=== PATIENT | male | born 1930 | race Caucasian/White ===

== ENCOUNTER → 2017-05-20 | Outpatient (CLI) | payer MEDICARE, OTHER ==
[~2017-05-20] MED LIST: ALLO100 PO; AMLO5 PO; ASPI325; ATOR40TA PO; BENA20; CHLO25A; CHOL10002 PO; Coumadin5 MG; D3-20002000 UNIT PO; DABI150C PO; ELIQUIS2.5 MG; ENOX40I; ESOM20 PO; HYDCHL12.5 PO; Hydrochloroth12.5 MG PO; Hydrocodone-Ap1 EA23; ICAPS PLUS PO; Icaps Plus1 EACH PO; LOSA50 PO; Lopressor 25 mg25 MG; METO25 PO; Norco 5-325 Ta1 EACH PO; OCUVITE WITH LUTEIN; OMEP20ER; PRED FORTE; PRED1SU; PROBIOTIC1 EAC1 PO; Pred Forte1 ML; SUCR1 PO; TAMS.4ER PO; TIMDOROPSO; TRIHYD5075 PO; Vitamin B Comple1 EA PO; XARELTO20 MG PO; [UNRECOGNIZED DRUG - OTHER]; [UNRECOGNIZED DRUG - OTHER]
[2017-05-20 14:13] LABS: Protein, Urine Quantitative 10.8 mg/dL (0.0-11.9)
[2017-05-20 14:15] LABS: Microalbumin, Urine Quant. 46.7 mg/L (0.000-20.000)
== END | disposition home or self-care (01) ==
LOC: OLS 04:00 → LAB SHORT 04:00 → LAB FUT 05-13 14:00
PROVIDERS: Internal Medicine Nephrology
DX: N18.3 Chronic kidney disease, stage 3 (moderate) (principal); D63.1 Anemia in chronic kidney disease; N25.81 Secondary hyperparathyroidism of renal origin; E55.9 Vitamin D deficiency, unspecified; E78.00 Pure hypercholesterolemia, unspecified; R76.9 Abnormal immunological finding in serum, unspecified; R94.5 Abnormal results of liver function studies; R94.6 Abnormal results of thyroid function studies; D51.8 Other vitamin B12 deficiency anemias; D52.8 Other folate deficiency anemias; D50.9 Iron deficiency anemia, unspecified
CPT/HCPCS: 81050; 82043; 84156; 84166; 86335

== ENCOUNTER 2018-06-19 11:01 | Emergency (ER) | payer MEDICARE | END 2018-06-19 11:12 | disposition left against medical advice (07) | LOC: ER 11:01 | DX: Z53.21 Procedure and treatment not carried out due to patient leaving prior to being seen by health care provider (principal) ==

== ENCOUNTER 2018-09-16 03:54 | Emergency (ER) | payer MEDICARE ==
[~2018-09-16] VITALS: Ht 182.9 cm; Wt 81.7 kg
== END 2018-09-16 17:43 | disposition home or self-care (01) ==
LOC: ER 03:54
DX: S09.90XA Unspecified injury of head, initial encounter (principal); S61.012A Laceration without foreign body of left thumb without damage to nail, initial encounter; W01.198A Fall on same level from slipping, tripping and stumbling with subsequent striking against other object, initial encounter; Z91.030 Bee allergy status; Z79.899 Other long term (current) drug therapy; E11.22 Type 2 diabetes mellitus with diabetic chronic kidney disease; I12.9 Hypertensive chronic kidney disease with stage 1 through stage 4 chronic kidney disease, or unspecified chronic kidney disease; N18.9 Chronic kidney disease, unspecified; Z87.891 Personal history of nicotine dependence
CPT/HCPCS: 70450; 72100; 72125; 99284-25

== ENCOUNTER 2019-03-28 19:00 | Inpatient (IN) | payer OTHER, MEDICARE ==
[~2019-03-28] VITALS: Ht 182.9 cm; Wt 86.0 kg
[2019-03-28 19:10] LABS: Calcium, Ionized (POC) 1.13 mmol/L (1.10-1.46); Chloride (POC) 102 mmol/L (98-108); Creatinine (POC) 1.9 mg/dL (0.8-1.3); Glucose (ISTAT POC) 131 mg/dL (70-99); Hemoglobin (POC) 12.9 g/dL (13.5-17.5); Potassium (POC) 4.7 mmol/L (3.5-5.5); Sodium (POC) 133 mmol/L (135-148); Total CO2 (POC) 22 mmol/L (21-32)
[2019-03-28 19:20] LABS: BASOPHILS ABSOLUTE AUTO 0.04 K/mm3 (0.00-0.23); BASOPHILS PERCENT AUTO 1 % (0-2); EOSINOPHILS ABSOLUTE AUTO 0.29 K/mm3 (0.00-0.68); EOSINOPHILS PERCENT AUTO 4 % (0-6); Hematocrit 38.1 % (37.0-53.0); Hemoglobin 12.3 g/dL (13.5-17.5); IMMATURE GRAN ABSOLUTE AUTO 0.03 K/mm3 (0.00-0.10); IMMATURE GRAN PERCENT AUTO 0 % (0-1); LYMPHOCYTES ABSOLUTE AUTO 1.29 K/mm3 (0.84-5.20); LYMPHOCYTES PERCENT AUTO 16 % (21-46); MONOCYTES ABSOLUTE AUTO 0.92 K/mm3 (0.16-1.47); MONOCYTES PERCENT AUTO 12 % (4-13); Mean Corpuscular HGB 32.4 pg (26.0-34.0); Mean Corpuscular HGB Conc 32.3 g/dL (31.5-36.5); Mean Corpuscular Volume 100 fL (80-100); Mean Platelet Volume 10.8 fL (9.1-12.4); NEUTROPHILS PERCENT AUTO 68 % (41-73); Platelet Count 155 K/mm3 (150-400); RDW Coefficient Variation 14.5 % (11.7-14.2); RDW Standard Deviation 53.7 fL (35.1-46.3); White Blood Cell Count 7.97 K/mm3 (4.00-11.30)
[2019-03-28] MEDS ORDERED: SINEMET 25-1001 EACH PO ×2 (19:25→22:01)
[2019-03-28] MEDS ORDERED: HYDR10 PO (19:26)
[2019-03-28] MEDS ORDERED: PROP10 PO (19:26)
[2019-03-28] MEDS ORDERED: Zantac150 MG PO (19:26)
[2019-03-28 19:36] LABS: Albumin, Blood 3.4 g/dL (3.4-5.0); Bilirubin, Total 0.4 mg/dL (0.1-1.0); Bun/Creatinine Ratio 25.7 (12.0-20.0); Calcium, Blood 8.8 mg/dL (8.5-10.1); Creatinine, Blood 1.83 mg/dL (0.60-1.20); Globulin, Blood 3.4 g/dL (2.2-4.0); Potassium, Blood 4.6 mmol/L (3.5-5.5); Total Protein, Blood 6.8 g/dL (6.4-8.2)
[2019-03-28 19:40] LABS: Troponin I 19.9 ng/mL (0.000-0.040)
[2019-03-28] MEDS ORDERED: Aspir 8181 MG PO (21:59)
[2019-03-28] MEDS ORDERED: SENN187 PO (22:08)
[2019-03-28] MEDS ORDERED: MEMA10 PO (22:10)
[2019-03-28] MEDS ORDERED: MELA3 PO (22:13)
[2019-03-28 22:25] LABS: International Normalized Ratio 1.03; Prothrombin Time Results 10.9 Sec (9.7-11.5)
--- NOTE | 2019-03-28 23:00 | NUR ---
Admission/[facility] of Care: Arrived to unit at 2130hr via stretcher, accompanied by ED nurse. A/o x4, VSS, heart rhythms shows A-fib- 60's-70's. Denies chest pain/discomfort/pressure, denies dyspnea/SOB. Peripheral IV's x2 patent and intact. Using urinal in bed to void without difficulty. Given heparin bolus of 6,300 units IV, followed by heparin gtt at 13u/kg/hr doses at 84kg, confirmed with EMAR and 2nd RN. Troponin of [address] Gaviria, no new orders received. Will continue to monitor.
[2019-03-29 05:24] LABS: BASOPHILS ABSOLUTE AUTO 0.04 K/mm3 (0.00-0.23); BASOPHILS PERCENT AUTO 1 % (0-2); EOSINOPHILS ABSOLUTE AUTO 0.22 K/mm3 (0.00-0.68); EOSINOPHILS PERCENT AUTO 3 % (0-6); Hematocrit 33.8 % (37.0-53.0); Hemoglobin 11.1 g/dL (13.5-17.5); IMMATURE GRAN ABSOLUTE AUTO 0.03 K/mm3 (0.00-0.10); IMMATURE GRAN PERCENT AUTO 0 % (0-1); LYMPHOCYTES ABSOLUTE AUTO 1.91 K/mm3 (0.84-5.20); LYMPHOCYTES PERCENT AUTO 23 % (21-46); MONOCYTES ABSOLUTE AUTO 1.02 K/mm3 (0.16-1.47); MONOCYTES PERCENT AUTO 12 % (4-13); Mean Corpuscular HGB 32.3 pg (26.0-34.0); Mean Corpuscular HGB Conc 32.8 g/dL (31.5-36.5); Mean Corpuscular Volume 98 fL (80-100); Mean Platelet Volume 10.6 fL (9.1-12.4); NEUTROPHILS ABSOLUTE AUTO 5.13 K/mm3 (1.96-9.15); NEUTROPHILS PERCENT AUTO 61 % (41-73); Platelet Count 143 K/mm3 (150-400); RDW Coefficient Variation 14.6 % (11.7-14.2); RDW Standard Deviation 52.6 fL (35.1-46.3); Red Blood Cell Count 3.44 M/mm3 (4.30-5.90); White Blood Cell Count 8.35 K/mm3 (4.00-11.30)
[2019-03-29 05:46] LABS: Alanine Aminotransfer (ALT/SGP 33 U/L (12-78); Alk Phos 72 U/L (50-136); Anion Gap 8 mmol/L (6-16); Aspartate Aminotrans (AST/SGOT 235 U/L (12-37); Bilirubin, Total 0.6 mg/dL (0.1-1.0); Blood Urea Nitrogen 43 mg/dL (8-24); Bun/Creatinine Ratio 25.9 (12.0-20.0); CO2, Blood 22 mmol/L (21-32); Calcium, Blood 8.7 mg/dL (8.5-10.1); Chloride, Blood 106 mmol/L (98-108); Creatinine, Blood 1.66 mg/dL (0.60-1.20); Glomerular Filtration Rate 42 (60-); Glucose, Blood 123 mg/dL (70-99); Magnesium, Blood 2.1 mg/dL (1.6-2.4); Phosphorus, Blood 3.3 mg/dL (2.5-4.9); Potassium, Blood 4.4 mmol/L (3.5-5.5); Sodium, Blood 136 mmol/L (136-145); Triglycerides 48 mg/dL (30-160); Very Low Density Lipoprot Chol 9 mg/dL (6-32)
[2019-03-29 05:50] LABS: CHOL/HDL RATIO 2.8; Cholesterol 138 mg/dL (50-200); HDL Cholesterol 49 mg/dL (>39); International Normalized Ratio 1.06; LDL/HDL RATIO 1.6; Low Density Lipoprotein Chol 79 mg/dL (0-110); Prothrombin Time Results 11.2 Sec (9.7-11.5)
--- NOTE | 2019-03-29 06:30 | NUR ---
Shift Summary: Patient slept on/off throughout shift. Continues to deny chest pain/discomfort/pressure, dyspnea or SOB. VS remain stable, heart rhythm continues to show A-fibb in the 70's. Heparin gtt continues at 13u/kg/hr, awaiting adjustment per pharmacy following repeat PTT with morning labs. Repeat troponin this morning showed- 190, this value called to Dr. Trammell, no new orders received. Continues to use urinal in bed to void without difficulty. Call light in reach, makes needs known. Will continue to monitor until report to day shift RN.
--- NOTE | 2019-03-29 10:47 | NUR ---
DR. NUGENT AT BEDSIDE FOR ASSESSMENT. INFORMED PT ABOUT OK AND EF%. INSTRUCTED THIS AUTHOR TO HOLD ADDITIONAL DOSES OF METOPROLOL TODAY HR IS IN HIGH 40'S/LOW 50'S AT THIS TIME; PT ASYMPTOMATIC. NO PLANS TO TAKE PATIENT TO FELT CUTTER HE IS PAIN FREE. CONTINUE WITH HEPARIN GTT.
--- NOTE | 2019-03-29 11:29 | NUR ---
DR. WRIGHT AND MEDICAL STUDENT CYRUS AT BEDSIDE FOR ASSESSMENT. THIS AUTHOR GAVE UPDATE ON PATIENT'S CONDITION O/N, NO C/O PAIN OR CP AT THIS TIME. RELAYED DR. NUGENT'S RECS FROM HIS VISIT. DR. WRIGHT STATED SHE WOULD LIKE TO SPEAK TO DR. NUGENT BEFORE WRITING NEW ORDERS.
--- NOTE | 2019-03-29 11:55 | NUR ---
REASSESSMENT: PATIENT REMAINS PAIN FREE. RHYTHM IS AFIB WITH RATE IN 40-50'S WITH VERY BRIEF DIPS TO 38, IS COMPLETELY ASYMPTOMATIC, STATES HE FEELS FINE. USING URINAL WITH ASSISTANCE. HEPARIN INFUSING AT 13 UNIT/KG/HR, AWAITING NEXT PTT DRAW. CBG 125, NO INSULIN COVERAGE NEEDED. HOLDING METOPROLOL PER DR. NUGENT. RESTING COMFORTABLY.
--- NOTE | 2019-03-29 13:17 | NUR ---
SPOKE TO DR. NUGENT BY PHONE, REQUESTED DIET FOR PATIENT. HE STATED OK FOR PT TO EAT. CALLED DR. WRIGHT BY PHONE, RELAYED CONVERSATION WITH DR. NUGENT. PROVIDER STATED OK TO ORDER CARDIAC DIET.
--- NOTE | 2019-03-29 16:27 | NUR ---
REASSESSMENT: PT DENIES PAIN, SOB. RHYTHM CONTINUES TO BE ATRIAL FIB WITH RATE 40-60. LUNGS CTAB, NO COUGH. USING URINAL WITH ASSISTANCE. GOOD APPETITE, ATE ~ 80% LUNCH. HAD VISIT WITH NEIGHBOR ARLEEN FOR ~ 2 HOURS THIS AFTERNOON. NO BM, DECLINED BOWEL MEDS THIS MORNING. IS HOPEFUL HE CAN GET SOME SLEEP TONIGHT.
--- NOTE | 2019-03-29 16:45 | NUR ---
RECEIVED REPORT FROM ALLI MARX RN, ASSUMED CARE, PATIENT IS RESTING COMFORTABLY, EYES CLOSED, APPEARS TO BE SLEEPING, VSS, AFEBRILE, NO SIGNS OF PAIN, CALL LIGHT IN REACH, WILL CONTINUE TO MONITOR.
--- NOTE | 2019-03-29 17:55 | NUR ---
SHIFT SUMMARY NOTE: NO ACUTE EVENTS DURING THIS SHIFT, PATIENT IS ALERT AND ORIENTED, VISITING WITH FRIENDS THIS AFTERNOON, NOW SLEEPING, PATIENT IS IN A-FIB BUT HEART RATE DROPPED INTO 40'S AFTER RECEIVING METOPROLOL, AFEBRILE, NO SIGNS OF PAIN, FOR DETAILS SEE SHIFT ASSESSMENT DOCUMENTATION AND NURSES NOTES, CALL LIGHT IN REACH, WILL CONTINUE TO MONITOR AND GIVE REPORT TO ONCOMING JIGMAKER.
--- NOTE | 2019-03-29 22:51 | NUR ---
ASSUMPTION OF CARE: PT ALERT AND ORIENTED. ABLE TO FOLLOW COMMANDS. LUNG SOUNDS CLEAR. SP02 >90% ON 1L NC. PT CURRENTLY IN A-FIB. HR IN THE 40-50S. SBP STABLE. DENIES ANY PAIN AT THIS TIME. PT ABLE TO USE URINAL AT BEDSIDE. 18G IN RFA INFUSING WITH HEPARIN 13U. 18G IN LAC, SL. PT CURRENTLY RESTING
[2019-03-30 03:52] LABS: Bun/Creatinine Ratio 24.4 (12.0-20.0); Calcium, Blood 8.6 mg/dL (8.5-10.1); Creatinine, Blood 1.6 mg/dL (0.60-1.20); Magnesium, Blood 1.9 mg/dL (1.6-2.4); Potassium, Blood 4.5 mmol/L (3.5-5.5)
--- NOTE | 2019-03-30 05:45 | NUR ---
SHIFT SUMMARY: PT ALERT AND ORIENTED. AFEBRILE. LUNG SOUNDS CLEAR, SP02 >90% ON 1L NC. IN AFIB, HR IN THE 40S, SBP STABLE IN THE 140S. BOWEL TONES PRESENT, NO BM THIS SHIFT.PT IS ABLE TO USE URINAL ON OWN. 18G TO LAC INFUSING WITH HEPARIN 13U/KG/HR.
--- NOTE | 2019-03-30 08:00 | NUR ---
AM ASSESS NOTE PT RESTING IN BED, SITS SELF UP HIGHER TO EAT BREAKFAST. PT TAKES PILLS WITHOUT DIFFICULTY. PT A&OX3, DENIES PAIN/DISCOMFORT THIS AM. MONITOR CONTINUES TO SHOW A-FIB WITH HEART RATE 70s CURRENTLY. LUNGS CTA AND O2 REMOVED R/T SAT 97%. BS PRESENT X4, ABD ROUND AND SOFT, NONTENDER. SKIN HAS SOME SCATTERED BRUISING TO BILAT LE, REDNESS TO RT AC. IV IN LT AC WITH HEPARIN INFUSING AT 13U/KG/HR. PT C/O COLD AND WARM BLANKET APPLIED. NO FURTHER REQUESTS. BED IN LOW POSITION, CALL LIGHT AND TABLE IN REACH, WILL CONTINUE TO MONITOR PT.
--- NOTE | 2019-03-30 09:30 | NUR ---
INITIAL ASSESSMENT PT A&OX3, SPEECH SLOW. HEART RATE 50-70s, A-FIB, IRREGULAR. LUNGS CLEAR UPPER LOBES, DIM LOWER LOBES, 1L/NC WITH SAT >90s. BOWEL SOUNDS PRESENT, APPETITE POOR. SKIN WNL, 1+ EDEMA TO BLE. IV TO LT AC WITH HEPARIN INFUSING. BED IN LOW POSITION, CALL LIGHT IN REACH, WILL CONTINUE TO MONITOR THIS SHIFT. PT SPOKE WITH CREEL CLERK REGARDING WILL.
--- NOTE | 2019-03-30 10:05 | NUR ---
ANTI AIR WARFARE OPERATIONS OFFICER MEETING PT SITTING UP IN BED, TALKING WITH FRAME CARVER SPINDLE. PT ASKED FRIENDS, ARLEEN AND ELIZABET GUTIERREZ, TO CONTACT AN FRAME CARVER SPINDLE TO MAKE CHANGES IN HIS POA AND DRAW UP A WILL FOR PT. THIS RN PRESENT DURING ENTIRE CONVERSATION TO ASSIST WITH CLARIFICATION WHEN NEEDED. PT REMAINS A&OX4, SPEECH SLOW. RACHEL NOT PRESENT DURING MEETING.
--- NOTE | 2019-03-30 15:20 | NUR ---
HEPARIN RATE CHANGE PTT RESULTS DISCUSSED WITH PHARMACY. NOON DRAW WAS HIGH AND INCONSISTENT WITH PREVIOUS VALUES, REDRAW ORDERED FOR VERIFICATION. NO CHANGE AT THIS TIME. 1520 REDRAW RESULTS PTT 53.1, CONSISTENT WITH PREVIOUS VALUES. RATE INCREASE TO 14u/KG/HR ORDERED BY PHARMACIST, REPEATED AND COMPLETED BY THIS RN. SEE ICU FLOWSHEET.
--- NOTE | 2019-03-30 16:40 | NUR ---
Per admit trigger, I was tasked to speak with Mr. Teixeira about Advanced Care planning. He is very [place]. Conversation with difficult. He accepted prayer form me even though I "wasn't a male debeader." His family was at bedside, so I provided education regardiong the purpose /benefits of ACP. They took Advacned Directive pasck to discuss with pt at a later time. I will remain available.
--- NOTE | 2019-03-30 17:51 | NUR ---
END OF SHIFT SUMMARY PT SAT UP IN CHAIR FOR MEALS X2, UP TO TOILET X2 NO BM, WEAKNESS NOTED. DISCUSSED PT WITH DR NUGENT BEFORE PT DC TO HOME. DR NUGENT DOES NOT WANT ANY CHANGES UNTIL TOMORROW, NO ORDERS. PT VS STABLE WITH HR 50-70s, SBP 130-150s. PT CONTINUES TO DENY PAIN/DISCOMFORT. LUNGS CTA WITH PT ON RA AND SATS >90%. BS PRESENT, VOIDING WELL. PT APPETITE HAS INCREASED TODAY BUT REMAINS POOR. PT A&OX4 AND TALKED WITH NURSING HOME DIRECTOR AND VISITORS TODAY. SKIN HAS SCATTERED BRUISES TO BLE AND MILD EDEMA TO BLE. BED REMAINS IN LOW POSITION, CALL LIGHT IN REACH, WILL CONTINUE TO MONITOR.
--- NOTE | 2019-03-31 01:49 | NUR ---
RESP STATUS PT KEPT DESATURATING TO 85-87% ON RA WHILE ASLEEP. RT NOTIFIED. PT PLACED 2L NC. SAT NOW 96% ON 2L NC.
[2019-03-31 03:43] LABS: BASOPHILS ABSOLUTE AUTO 0.03 K/mm3 (0.00-0.23); BASOPHILS PERCENT AUTO 0 % (0-2); EOSINOPHILS ABSOLUTE AUTO 0.26 K/mm3 (0.00-0.68); EOSINOPHILS PERCENT AUTO 3 % (0-6); Hemoglobin 10.5 g/dL (13.5-17.5); IMMATURE GRAN ABSOLUTE AUTO 0.02 K/mm3 (0.00-0.10); IMMATURE GRAN PERCENT AUTO 0 % (0-1); LYMPHOCYTES ABSOLUTE AUTO 2.07 K/mm3 (0.84-5.20); LYMPHOCYTES PERCENT AUTO 27 % (21-46); MONOCYTES ABSOLUTE AUTO 1.07 K/mm3 (0.16-1.47); MONOCYTES PERCENT AUTO 14 % (4-13); Mean Corpuscular HGB 31.8 pg (26.0-34.0); Mean Corpuscular HGB Conc 32.8 g/dL (31.5-36.5); Mean Corpuscular Volume 97 fL (80-100); NEUTROPHILS ABSOLUTE AUTO 4.16 K/mm3 (1.96-9.15); NEUTROPHILS PERCENT AUTO 55 % (41-73); Platelet Count 121 K/mm3 (150-400); RDW Coefficient Variation 14.2 % (11.7-14.2); RDW Standard Deviation 50.9 fL (35.1-46.3); White Blood Cell Count 7.61 K/mm3 (4.00-11.30)
[2019-03-31 04:02] LABS: Bun/Creatinine Ratio 22.4 (12.0-20.0); Calcium, Blood 8.5 mg/dL (8.5-10.1); Creatinine, Blood 1.43 mg/dL (0.60-1.20); Magnesium, Blood 1.8 mg/dL (1.6-2.4); Potassium, Blood 4.4 mmol/L (3.5-5.5)
--- NOTE | 2019-03-31 06:06 | NUR ---
SHIFT SUMMARY PATIENT ALERT & ORIENTED THROUGHOUT SHIFT. PLEASANT, COOPERATIVE AND FOLLOWS COMMANDS. 2L NC FOR SLEEP. NO BMS THIS SHIFT. 4 VOIDS. PATIENT ABLE TO STAND WITH MINIMAL ASSIST, BUT GETS DIZZY OCCASSIONALLY. NO INSULIN REQUIRED THIS SHIFT. HEPARIN GTT 14 UNITS/KG/HR. VSS. AFEBRILE. NO OTHER CHANGES THIS SHIFT, WILL CONTINUE TO MONITOR UNTIL REPORT TO DAY SHIFT NURSE.
--- NOTE | 2019-03-31 06:32 | NUR ---
PT'S GAIT PATIENT HAD BEEN STEADY WHEN UP TO BEDSIDE COMMODE THROUGHOUT SHIFT. AT 0530, PATIENT ASKED FOR ASSISTANCE TO TOILET AND UPON GETTING OUT OF BED COMPLAINED OF DIZZINESS. WHEN RETURNING TO BED, HE BECAME UNSTEADY AND STUMBLED ONTO BED. CONCERNS FOR WEAKNESS SINCE IN ICU. DISCHAGE PLANNING STATES PATIENT LIVES ALONE AND NEIGHBORS CHECK ON HIM.
--- NOTE | 2019-03-31 07:30 | NUR ---
ASSUMED CARE AT 0700. REPORT FROM LUBA MCDONNELL. PT RESTING IN BED. WAKES c VERBAL STIMULI. DENIES PAIN OR OTHER COMPLAINTS. A&OX 3. FOLLOWS COMMANDS. ANSWERS QUESTIONS APPROPRIATELY. LUNGS DIMINISHED IN BASES. PT P/W/D. AFIB ON MONITOR, RATE 50-70'S. VSS. HEPARIN INFUSING AT 14 UNITS/KG/HR. WILL CONTINUE TO MONITOR.
--- NOTE | 2019-03-31 11:51 | NUR ---
DR WRIGHT IN TO SEE PT. PT/OT EVAL ORDERED. WILL CONTINUE HEPARIN DRIP PER CARDIOLOGY RECOMMENDATIONS. PT REFUSING LUNCH AT THIS TIME. WILL CONTINUE TO MONITOR.
--- NOTE | 2019-03-31 17:41 | NUR ---
SHIFT SUMMARY HEPARIN INFUSION D/C'D TODAY. ORDER TO START XARELTO IN AM. PT WORKED c PT AND OT TODAY. PT STATES HE ENJOYED WALKING AROUND UNIT. PT AMB TO BATHROOM FOR SHOWER TODAY, NO DIZZINESS OR WEAKNESS NOTED. DENIES CHEST PAIN, SOB OR OTHER SYMPTOMS. VSS THIS SHIFT. POOR APPETITE MOST SHIFT, ENCOURAGED INTAKE AT DINNER. REPORT TO ONCOMING NURSE.
--- NOTE | 2019-03-31 21:31 | NUR ---
ASSUME CARE RECEIVED REPORT FROM KECIA AARON AT 1900. PT AWAKE, FOLLOWS COMMANDS AND ANSWERS QUESTIONS APPROPRIATELY. NO COMPLAINTS OF PAIN. PATIENT AMBULATED AROUND NURSING STATION FOUR LAPS WITH WALKER, STAND BY ASSIST. UP TO TOILET. VSS. AFIB WITH RATE IN 50-70S. AFEBRILE. WILL CONTINUE TO MONITOR.
--- NOTE | 2019-04-01 05:55 | NUR ---
SHIFT SUMMARY AMBULATED PATIENT EARLY IN SHIFT. PATIENT REQUESTED ANOTHER WALK AROUND UNIT. PT ABLE TO AMBULATE TO TOILET WITHOUT DIZZINESS OR SOB. VSS. WILL CONTINUE TO MONITOR UNTIL REPORT HANDOFF TO ONCOMING NURSE.
--- NOTE | 2019-04-01 08:00 | NUR ---
Received report from noc RN. Patient sitting up in bed reading paper. He is [place] but is able to communicate his needs. He is on RA and sats 97%. He is in A-fib 40-60's and asymptomatic. He has 18ga LAC IV dressing intact and site WNL's, flushed and SL'd. SBP 127/64, temp 99.0. He uses urinal appropriately. Dr Paul by to see him and will be making him mediwith tele and PT is comingh by to work with him.
--- NOTE | 2019-04-01 08:20 | NUR ---
Received report from Noc RN. Partient sleeping post report and awakens to verbal; stimuli. and falls right back to sleep. He is on BIPAP /6 ay FiO2 25% and sats 98%. He has 18ga RAC dressing intact and site WNL's and is infusing LEVOPHED 2 mcg/min, he also has 18ga FS LAC dressing intact and site WNL's and is infusing NS at 75ml/hr. He denies any current needs or pain. With Levophed systolics 100 and MAP >65. VSS. He ususe urinal appropriately.
--- NOTE | 2019-04-01 09:30 | NUR ---
He is tolerating breakfast well. Turned of Levophed and systolic 100's with MAP > 65. He tolerated meds well and is resting. Pulled off BIPAP for breakfast and placed on RA and sasts upper 90%'s.
--- NOTE | 2019-04-01 09:37 | NUR ---
Patient up in ICU with Therapy and did multiple laps aroung unit and tolerated well. He remains on RA and sats upper 90%'s. VSS. He tolerated meds and breakfast well. He denies any needs or current pain.
--- NOTE | 2019-04-01 12:02 | NUR ---
Friends that watch over patient in room. He is sitting up eating lunch and CBG WNL's and no coverage needed. VSS. Patient has no pain or concerns. Awaiting medical bed.
--- NOTE | 2019-04-01 14:00 | NUR ---
Patient up in chair talking with friends for the last few hours. VSS. No other significant changes.
--- NOTE | 2019-04-01 16:25 | NUR ---
Patient states comfortable in new bed and asked to get up to bathroom with SBA, and tolerated well. VSS, a-fib 50-60's RA. No other significant changes.
--- NOTE | 2019-04-01 18:33 | NUR ---
Patient resting watching TV. VSS, He rtemains on RA and sats upper 90%'s. He is SBA up to bathroom.
--- NOTE | 2019-04-01 19:15 | NUR ---
ASSUMED CARE BEDSIDE REPORT RECIEVED. PT IS ALERT, ORIENTED, AND PLEASANT. PT IS SLOW TO RESPOND, BUT ANSWERS QUESTIONS APPROPRIATELY. PT DENIES PAIN OR DISCOMFORT. VITAL SIGNS STABLE. PT ON ROOM AIR. IV SALINE LOCKED. PT ENCOURAGED TO TAKE PO FLUIDS. PT REPOSITIONS SELF IN BED INDEPENDENTLY. WILL CONTINUE TO MONITOR.
--- NOTE | 2019-04-02 05:52 | NUR ---
SHIFT SUMMARY NO ACUTE CHANGES THIS SHIFT. PT HAS SLEPT WELL THROUGHOUT THE NIGHT. PT IS ALERT AND ORIENTED WHEN AWAKE. VITAL SIGNS HAVE REMAINED STABLE, PT ON ROOM AIR. PT UP TO TOILET TO VOID WITH SBA AND WALKER MULTIPLE TIMES THIS SHIFT. PT TAKING PO FLUIDS WELL WHEN AWAKE. PT DENIES PAIN OR DISCOMFORT. WILL CONTINUE TO MONITOR AND REPORT OFF TO ONCOMING RN.
--- NOTE | 2019-04-02 12:05 | NUR ---
SPOKE TO DR. BARRERA REGARDING CARDIOLOGY F/U PRIOR TO PT DISCHARGE. SHE ASKED THAT THIS AUTHOR CALL DR. NUGENT, WHO HAD SEEN THE PATIENT LAST ON 03/30, TO SEE IF OK TO D/C. IF NOT ABLE TO REACH HIM, THEN OK TO CALL HER BACK AND SHE WILL EVALUATE.
--- NOTE | 2019-04-02 12:19 | NUR ---
SPOKE TO DR. NUGENT BY PHONE, REQUESTED HE VISIT PATIENT IF AVAILABLE TO SEE IF PT CAN BE D/C'D. PROVIDER STATED HE IS IN THE HOSPITAL TODAY AND WILL STOP BY TO SEE PT THIS AFTERNOON.
--- NOTE | 2019-04-02 12:54 | NUR ---
DR. NUGENT AT BEDSIDE FOR ASSESSMENT. STATED, FROM HIS PERPECTIVE, PT OK TO BE D/C'D. THIS AUTHOR CALLED POWER SYSTEM DISPATCHER Raya ISAACS TO ASK FOR CARDIOLOGY CONSULT WITH [facility] PROVID[facility] PER DR. NUGENT'S REQUEST.
--- NOTE | 2019-04-02 12:55 | NUR ---
SPOKE TO DR. QUEEN BY PHONE, REPORTED THAT DR. NUGENT HAS SEEN PT AND STATED OK FOR D/C. HE WILL ALSO SPEAK TO EDUCATIONAL PARAPROFESSIONAL REGARDING PT D/C PLAN FOR HOME.
--- NOTE | 2019-04-02 14:19 | NUR ---
SPOKE TO PT'S FRIEND ARLEEN BY PHONE ABOUT POTENTIAL D/C TODAY. REPORTED THAT CARDIOLOGY AND HOSPITALIST HAD SEEN PT AND WOULD ADVISE HER FURTHER IF D/C ORDERS COME THROUGH; VERBALIZED UNDERSTANDING.
--- NOTE | 2019-04-02 14:28 | NUR ---
VISIT FROM [facility].
--- NOTE | 2019-04-02 14:29 | NUR ---
NOTIFIED BY DIRECT CASTING OPERATORKECIA CORONA THAT MEDICAL I D SALES STATED THAT [facility] WILL CONTACT PATIENT FOR APPOINTMENT AFTER DISCHARGE.
--- NOTE | 2019-04-02 15:08 | NUR ---
Patient is lying in bed and alert. Patient immediately shares about the of his . So I had patient share how they met, about the family they raised together, about the adventures they went on, about the hobbies they did together and about the gokul they had in common. We explored sources of meaning and identity and how it effects motivation, appetite and future planning. Patient was very tearful early on in our conversation but we ended at a good place in that he was counting all that is good and what he is thankful for. I listen empathically, normalize patient's experience, explore sources of meaning and value, highlight what is good now and the courage and strength he has had, provided companionship and prayer and reinforced helpful attitudes and practices. I will continue to remain available to patient.
[2019-04-02] MEDS ORDERED: ATOR40TA PO (15:18)
[2019-04-02] MEDS ORDERED: XARELTO15 MG PO (15:18)
--- NOTE | 2019-04-02 16:22 | NUR ---
PT DISCHARGED HOME IN CARE OF HIS FRIENDS ELIZABET AND ARLEEN. WAS INSTRUCTED TO [facility]INE INSULATOR MEDICATIONS FROM [facility] TOMORROW; NEW MEDICATIONS GIVEN TODAY WHILE IN HOSPITAL. PT HAD ALL BELONGINGS. DISCHARGED AT 1610.
== END 2019-04-02 16:04 | disposition home or self-care (01) | DRG 281 ==
LOC: ER 19:00 → ICUE 19:48 → ICUW 19:48 → ICUE 21:28
PROVIDERS: Emergency Medicine; Internal Medicine; ADMIT Internal Medicine
DX: I21.4 Non-ST elevation (NSTEMI) myocardial infarction (principal); N17.9 Acute kidney failure, unspecified; E87.1 Hypo-osmolality and hyponatremia; I48.0 Paroxysmal atrial fibrillation; N40.0 Benign prostatic hyperplasia without lower urinary tract symptoms; N18.3 Chronic kidney disease, stage 3 (moderate); I12.9 Hypertensive chronic kidney disease with stage 1 through stage 4 chronic kidney disease, or unspecified chronic kidney disease; E78.5 Hyperlipidemia, unspecified; E11.22 Type 2 diabetes mellitus with diabetic chronic kidney disease; K21.9 Gastro-esophageal reflux disease without esophagitis; M10.9 Gout, unspecified; R54 Age-related physical debility; R00.1 Bradycardia, unspecified; G31.83 Neurocognitive disorder with Lewy bodies; F02.80 Dementia in other diseases classified elsewhere, unspecified severity, without behavioral disturbance, psychotic disturbance, mood disturbance, and anxiety; E78.00 Pure hypercholesterolemia, unspecified; M19.90 Unspecified osteoarthritis, unspecified site; H40.9 Unspecified glaucoma; K59.00 Constipation, unspecified; Z85.51 Personal history of malignant neoplasm of bladder; Z88.8 Allergy status to other drugs, medicaments and biological substances
CPT/HCPCS: 36415; 71045; 80047; 80048; 80053; 80061; 82947; 83036; 83735; 84100; 84484; 85014; 85025; 85610; 85730; 93005; 93010; 93306; 96374; 96375; 97110; 97116; 97162; 97166; 97530; 97535; 99285-25; J1170; J1644; J2405

== ENCOUNTER 2019-12-07 18:32 | Emergency (ER) | payer OTHER, MEDICARE ==
[~2019-12-07] VITALS: Ht 182.9 cm; Wt 86.6 kg
[~2019-12-07 18:32] MED LIST changes: +Aspir 8181 MG PO; +CEFP200 PO; +CLOTRIMAZOLE28 GM TOP; +FAMO20 PO; +FINA5 PO; +HYDR10 PO; +HYDRA50 PO; +MELA3 PO; +MEMA10 PO; +PROP10 PO; +SENN187 PO; +SINEMET 25-1001 EAC1 PO; +SINEMET 25-1001 EACH PO; +XARELTO15 MG PO; +Zantac150 MG PO
[2019-12-07 18:57] LABS: BASOPHILS ABSOLUTE AUTO 0.04 K/mm3 (0.00-0.23); BASOPHILS PERCENT AUTO 1 % (0-2); EOSINOPHILS ABSOLUTE AUTO 0.28 K/mm3 (0.00-0.68); EOSINOPHILS PERCENT AUTO 4 % (0-6); Hematocrit 32.6 % (37.0-53.0); Hemoglobin 10.8 g/dL (13.5-17.5); IMMATURE GRAN ABSOLUTE AUTO 0.03 K/mm3 (0.00-0.10); IMMATURE GRAN PERCENT AUTO 0 % (0-1); LYMPHOCYTES ABSOLUTE AUTO 1.44 K/mm3 (0.84-5.20); LYMPHOCYTES PERCENT AUTO 20 % (21-46); MONOCYTES ABSOLUTE AUTO 1.04 K/mm3 (0.16-1.47); MONOCYTES PERCENT AUTO 15 % (4-13); Mean Corpuscular HGB 30.9 pg (26.0-34.0); Mean Corpuscular HGB Conc 33.1 g/dL (31.5-36.5); Mean Corpuscular Volume 93 fL (80-100); Mean Platelet Volume 10.3 fL (9.1-12.4); NEUTROPHILS ABSOLUTE AUTO 4.27 K/mm3 (1.96-9.15); NEUTROPHILS PERCENT AUTO 60 % (41-73); Platelet Count 164 K/mm3 (150-400); RDW Coefficient Variation 14.6 % (11.7-14.2); RDW Standard Deviation 50.4 fL (35.1-46.3)
[2019-12-07 19:12] LABS: International Normalized Ratio 1.12; Prothrombin Time Results 11.9 Sec (9.7-11.5)
[2019-12-07 19:25] LABS: Ethanol (Alcohol), Blood, Med <3 mg/dL
[2019-12-07 19:29] LABS: Alanine Aminotransfer (ALT/SGP 21 U/L (12-78); Albumin, Blood 3.3 g/dL (3.4-5.0); Albumin/Globulin Ratio 0.8 (0.8-1.8); Alk Phos 126 U/L (50-136); Anion Gap 9 mmol/L (6-16); Aspartate Aminotrans (AST/SGOT 26 U/L (12-37); Bilirubin, Total 0.6 mg/dL (0.1-1.0); Blood Urea Nitrogen 27 mg/dL (8-24); Bun/Creatinine Ratio 20.5 (12.0-20.0); CO2, Blood 21 mmol/L (21-32); Calcium, Blood 8.2 mg/dL (8.5-10.1); Chloride, Blood 95 mmol/L (98-108); Creatinine, Blood 1.32 mg/dL (0.60-1.20); Globulin, Blood 4.1 g/dL (2.2-4.0); Glomerular Filtration Rate 54 (60-); Glucose, Blood 115 mg/dL (70-99); Potassium, Blood 4.7 mmol/L (3.5-5.5); Sodium, Blood 125 mmol/L (136-145); Total Protein, Blood 7.4 g/dL (6.4-8.2)
[2019-12-07 21:55] LABS: Source, Urine Catheter
[2019-12-07 21:58] LABS: Appearance, Urine Clear (Clear); Bilirubin, Urine Neg (Neg); Blood, Urine 4+ (Neg); Color, Urine Yellow (P-Yellow); Glucose Qualitative, Urine Neg (Neg); Ketones, Urine Neg (Neg); Leukocyte Esterase, Urine Neg (Neg); Nitrite, Urine Neg (Neg); Protein, Urine 2+ (Neg); Specific Gravity, Urine 1.015 (1.003-1.022); Urobilinogen, Urine NORM (Normal)
[2019-12-07 22:04] LABS: Bacteria Few /hpf; Squamous Epithelial Cells Not Seen /hpf (Few); White Blood Cells, Urine 0-2 /hpf (0-5)
[2019-12-07 22:08] LABS: U Amphetamine Screen Not Detected; U Barbituate Screen Not Detected; U Benzodiazapine Screen Not Detected; U Buprenorphine Screen Not Detected; U Cannabinoids Screen Not Detected; U Cocaine Screen Not Detected; U Methadone Screen Not Detected; U Methamphetamine Screen Not Detected; U Opiates Screen Not Detected; U Oxycodone Screen Not Detected; U Phencyclidine Screen Not Detected; U Propoxyphene Screen Not Detected
[2019-12-07] MEDS ORDERED: SINEMET 25-1001 EAC1 PO (22:18)
== END 2019-12-08 | disposition home or self-care (01) ==
LOC: ER 18:32
PROVIDERS: Physician Assistant
DX: E86.0 Dehydration (principal); E87.1 Hypo-osmolality and hyponatremia; Z91.030 Bee allergy status; Z79.899 Other long term (current) drug therapy; Z79.2 Long term (current) use of antibiotics; E11.22 Type 2 diabetes mellitus with diabetic chronic kidney disease; I12.9 Hypertensive chronic kidney disease with stage 1 through stage 4 chronic kidney disease, or unspecified chronic kidney disease; N18.3 Chronic kidney disease, stage 3 (moderate); E78.00 Pure hypercholesterolemia, unspecified; I48.0 Paroxysmal atrial fibrillation; G20 Parkinson's disease; F03.90 Unspecified dementia, unspecified severity, without behavioral disturbance, psychotic disturbance, mood disturbance, and anxiety; K21.9 Gastro-esophageal reflux disease without esophagitis
CPT/HCPCS: 36415; 70450; 80053; 81001; 85025; 85610; 93005; 93010; 96360; 96361; 99285-25; G0480; J7030

== ENCOUNTER 2020-04-02 21:29 | Emergency (ER) | payer OTHER, MEDICARE ==
[~2020-04-02] VITALS: Ht 182.9 cm; Wt 81.7 kg
[2020-04-02] MEDS ORDERED: FURO20 PO (21:45)
[2020-04-02] MEDS ORDERED: FOLI1 PO (21:45)
[2020-04-02] MEDS ORDERED: MEMA10 PO (21:46)
[2020-04-02] MEDS ORDERED: MELA3 PO (21:46)
[2020-04-02 21:48] LABS: BASOPHILS ABSOLUTE AUTO 0.04 K/mm3 (0.00-0.23); BASOPHILS PERCENT AUTO 1 % (0-2); EOSINOPHILS ABSOLUTE AUTO 0.39 K/mm3 (0.00-0.68); EOSINOPHILS PERCENT AUTO 6 % (0-6); Hematocrit 33.9 % (37.0-53.0); Hemoglobin 10.9 g/dL (13.5-17.5); IMMATURE GRAN ABSOLUTE AUTO 0.02 K/mm3 (0.00-0.10); IMMATURE GRAN PERCENT AUTO 0 % (0-1); LYMPHOCYTES ABSOLUTE AUTO 1.66 K/mm3 (0.84-5.20); LYMPHOCYTES PERCENT AUTO 25 % (21-46); MONOCYTES ABSOLUTE AUTO 0.89 K/mm3 (0.16-1.47); MONOCYTES PERCENT AUTO 14 % (4-13); Mean Corpuscular HGB 31.7 pg (26.0-34.0); Mean Corpuscular HGB Conc 32.2 g/dL (31.5-36.5); Mean Corpuscular Volume 99 fL (80-100); Mean Platelet Volume 10.5 fL (9.1-12.4); NEUTROPHILS ABSOLUTE AUTO 3.59 K/mm3 (1.96-9.15); NEUTROPHILS PERCENT AUTO 55 % (41-73); Platelet Count 153 K/mm3 (150-400); RDW Coefficient Variation 15.5 % (11.7-14.2); RDW Standard Deviation 55.8 fL (35.1-46.3); Red Blood Cell Count 3.44 M/mm3 (4.30-5.90); White Blood Cell Count 6.59 K/mm3 (4.00-11.30)
[2020-04-02] MEDS ORDERED: MIRT15 PO (21:48)
[2020-04-02 22:07] LABS: Albumin, Blood 3.3 g/dL (3.4-5.0); Albumin/Globulin Ratio 0.9 (0.8-1.8); Bilirubin, Total 0.5 mg/dL (0.1-1.0); Bun/Creatinine Ratio 21.2 (12.0-20.0); Calcium, Blood 8.5 mg/dL (8.5-10.1); Creatinine, Blood 2.08 mg/dL (0.60-1.20); Globulin, Blood 3.5 g/dL (2.2-4.0); Potassium, Blood 4.4 mmol/L (3.5-5.5); Total Protein, Blood 6.8 g/dL (6.4-8.2); Troponin I 0.018 ng/mL (0.000-0.040)
== END 2020-04-02 23:47 | disposition home or self-care (01) ==
LOC: ER 21:29
PROVIDERS: Emergency Medicine
DX: R07.9 Chest pain, unspecified (principal); I10 Essential (primary) hypertension; E78.00 Pure hypercholesterolemia, unspecified; I48.0 Paroxysmal atrial fibrillation; G20 Parkinson's disease; F02.80 Dementia in other diseases classified elsewhere, unspecified severity, without behavioral disturbance, psychotic disturbance, mood disturbance, and anxiety; E11.22 Type 2 diabetes mellitus with diabetic chronic kidney disease; N18.30 Chronic kidney disease, stage 3 unspecified; K21.9 Gastro-esophageal reflux disease without esophagitis; E11.39 Type 2 diabetes mellitus with other diabetic ophthalmic complication; H42 Glaucoma in diseases classified elsewhere; Z79.899 Other long term (current) drug therapy; Z91.030 Bee allergy status; Z87.891 Personal history of nicotine dependence
CPT/HCPCS: 71046; 80053; 83690; 83880; 84484; 85025; 93005; 93010; 99285-25